=== PATIENT | female | born 1965 | race African-American/Black ===

== ENCOUNTER 2022-03-12 12:13 | Outpatient (CLI) | payer OTHER, SELFPAY ==
--- NOTE | ~2022-03-12 | CT_ITS ---
EXAMINATION: CT LE LT wo con DATE: 03/12/2022 12:48 INDICATION: Left knee osteoarthritis for preoperative planning. TECHNIQUE: High resolution computed tomography (CT) of the left lower limb from the hip through the a nkle was performed without intravenous contrast. Additional sagittal and coronal reconstructions were performed. Automated exposure control and iterative reconstruction technique were employed. The dose -length product was 1855.81 mGy-cm. COMPARISON: None FINDINGS: Bone alignment is normal. No fracture. Moderate osteoarthritis at the left hip. Tricompartmental oste oarthritis at the left knee with prominent marginal ossified small 3 compartments and at least modera te joint space narrowing in the medial compartment which could be underestimated on nonweightbearing imaging. There are central subchondral osteophytes at the trochlear groove consistent with high-grade chondromalacia. Subarticular cystlike changes at the medial aspect of the medial tibial plateau and anterior weightbearing medial femoral condyle consistent with additional high-grade chondromalacia. M ild osteoarthritis at the left ankle and multiple joints in the mid and hindfoot. Small likely reacti ve left knee joint effusion. No left hip or ankle joint effusion.. Prominent distal Achilles tendinos is with marked thickening and small enthesopathic ossicles in the distal tendon and large plantar forest caneal spur. Additional moderate-sized plantar calcaneal spurs. Fusiform thickening of the peroneus l ongus and brevis tendons at the level of the tip of the lateral malleolus consistent with tendinopath y. Multiple small heterotopic ossicles at the deep deltoid ligament likely sequela of chronic sprain. Soft tissues are otherwise unremarkable. No left pelvic or inguinal lymphadenopathy. IMPRESSION: 1. Polyarticular osteoarthritis throughout the left lower limb including tricompartmental osteoarthri tis at the left knee as detailed above. 2. Prominent distal Achilles tendinosis. 3. Tendinopathy at the left peroneus longus and brevis tendons. Reviewed, dictated and finalized at location A. IMPRESSION: 1. Polyarticular osteoarthritis throughout the left lower limb including tricom partmental osteoarthritis at the left knee as detailed above. 2. Prominent distal Achilles tendinosis. 3. Tendinopathy at the left peroneus longus and brevis tendons.
== END 2022-03-12 12:14 | disposition home or self-care (01) ==
PROVIDERS: Visit Provider Orthopaedic Surgery
DX: M17.12 Unilateral primary osteoarthritis, left knee (principal)
CPT/HCPCS: 73700

== ENCOUNTER 2022-03-17 08:31 | Outpatient (CLI) | payer OTHER, SELFPAY ==
--- NOTE | 2022-03-17 | ECG_ITS ---
Measurements Intervals [place] Rate: 88 P: 65 MD: 137 QRS: -1 QRSD: 106 T: 34 QT: 360 QTc: 437 Interpretive Statements SINUS RHYTHM WITH SHORT MD INTERVAL POSSIBLE LEFT ATRIAL ENLARGEMENT [-0.1mV P WAVE IN V1/V2] NONSPECIFIC T-WAVE ABNORMALITY NO PREVIOUS ECG AVAILABLE FOR COMPARISON Electronically Signed On 03-17-2022 19:57:11 CDT by Mely Nielson M.D.
[2022-03-17 10:00] LABS: Hematocrit 43.4 % (37.0-47.0); Hemoglobin 13.3 g/dL (12.0-15.0)
[2022-03-17 10:13] LABS: Urine Cotinine NEGATIVE
[2022-03-17 10:16] LABS: Hemoglobin A1C 5.7 % (<5.7)
[2022-03-17 10:22] LABS: Albumin Level 4.8 g/dL (3.5-5.1); Estimated Glomerular Filt Rate > 60; Glucose 106 mg/dL (65-110)
== END 2022-03-17 08:32 | disposition home or self-care (01) ==
PROVIDERS: Visit Provider Orthopaedic Surgery
DX: M17.12 Unilateral primary osteoarthritis, left knee (principal); I10 Essential (primary) hypertension; Z01.818 Encounter for other preprocedural examination
CPT/HCPCS: 80307; 82040; 82565; 82947; 83036; 85014; 85018; 93005

== ENCOUNTER 2022-04-15 13:48 | Outpatient (CLI) | payer OTHER, SELFPAY ==
[2022-04-15 15:25] LABS: Basophils Absolute Auto 0.1 K/mm3 (0.0-0.1); Basophils Percent Auto 0.8 % (0.2-1.2); Eosinophils Absolute Auto 0.3 K/mm3 (0-0.3); Hematocrit 41.1 % (37.0-47.0); Hemoglobin 12.7 g/dL (12.0-15.0); Immature Granulocyte Absolute 0.05 K/mm3 (0.00-0.031); Immature Granulocyte Percent A 0.4 % (0-0.5); Lymphocytes Absolute Auto 2.94 K/mm3 (0.9-3.2); Lymphocytes Percent Auto 23.3 % (18.3-44.2); Mean Corpuscular HGB Conc 30.9 g/dl (32-36); Mean Corpuscular Hemoglobin 25.8 pg (26-34); Mean Corpuscular Volume 83.5 fl (80-100); Mean Platelet Volume 11.4 fl (7.4-10.4); Monocytes Absolute Auto 0.9 K/mm3 (0.1-0.6); Neutrophils Absolute Auto 8.4 K/mm3 (1.3-6.7); Neutrophils Percent Auto 66.5 % (45.5-73.1); Platelet Count Result 272 k/mm3 (150-375); Red Blood Count 4.92 M/mm3 (4.2-5.4); Red Cell Distribution Width 13.4 % (11.5-14.5); White Blood Count 12.6 K/mm3 (4.5-10.0)
[2022-04-15 15:35] LABS: Anion Gap 11 mmol/L (8-16); Blood Urea Nitrogen 17 mg/dL (7-17); Calcium 9.2 mg/dL (8.4-10.2); Carbon Dioxide 33 mmol/L (22-30); Chloride 96 mmol/L (98-107); Estimated Glomerular Filt Rate > 60; Glucose 98 mg/dL (65-110); Potassium 3.7 mmol/L (3.4-5.0); Sodium 140 mmol/L (137-145)
== END 2022-04-15 13:49 | disposition home or self-care (01) ==
LOC: ANHSURGERY 13:57
PROVIDERS: Anesthesiology; Visit Provider Orthopaedic Surgery
DX: M25.562 Pain in left knee (principal); Z79.899 Other long term (current) drug therapy; Z01.818 Encounter for other preprocedural examination
CPT/HCPCS: 36415; 80048; 85025; 87081

== ENCOUNTER 2022-05-14 14:16 | Observation (INO) | payer OTHER, SELFPAY ==
--- NOTE | 2022-04-15 13:49 | PC.NURSE ---
PRE-OP INSTRUCTIONS, PLEASE READ CAREFULLY FAX COVID VACCINATIONS TO [phone] Report to the Outpatient Waiting Room, entrance under the green pavilion located off [facility], at time _0600_ on date _05/13/22_. OR Time: _0730_. PACK A SMALL OVERNIGHT BAG AND LEAVE IN THE CAR ALONG WITH YOUR WALKER Time changes happen often and if your time is changed the preop area will call you the afternoon before. - You and your visitor will be asked to self-screen and do not enter if you have any COVID symptoms. - A mask is required within the hospital. - Only one visitor and NO children visitors are allowed at this time. - The patient visitor is requested to leave or wait in car when not with patient due to restrictions. - VISITING HOURS 10AM-8PM, PARK IN FRONT PARKING LOT AND USE HOSPITAL ENTRANCE 1 Patients may have clear liquids (water, carbonated beverages, clear teas, apple juice) until 3 hours prior to surgery (0430 AM) with a maximum of 20 ounces. - No food from midnight until time of surgery Take the following medications with a SIP of water the morning of surgery: _INHALER_ Medications to discontinue per DR. BENZ - _MELOXICAM 7 DAYS PRIOR TO SURGERY, Date to take last dose 05/05/22_ Please no make-up, nail upper sorbian, hairspray, perfume, deodorant, or body powder the day of surgery. No jewelry (including any body piercings) or valuables the day of surgery, leave them at home. Please take a shower or bath the night before, or the morning of, surgery with an antibacterial soap. Wear comfortable, loose fitting clothing. - Jewelry must be removed prior to entering the operating room. Rings and piercings that are not removed may be cut off. - The hospital will not accept responsibility for valuables. - Please leave all valuables, including medications, at home the day of surgery. If you are going home after surgery, a licensed grain combine driver must drive you home. - NO public transportation without another adult. - We recommend that an adult stay with you for 24 hours following discharge. - We also recommend that you do not drive, make important decision, drink alcoholic beverages, or take any drugs that were not prescribed by your health care provider for at least 24 hours after your discharge time. Follow any additional instructions given to you from your surgeon. TOTAL JOINT CLASS 04/21/22 @ [address] [place] [address], PARK IN FROM PARKING LOT AND USE HOSPITAL ENTRANCE 2 If you or anyone in your household have experienced Covid symptoms in the past week, please notify your surgeon or the nurse liaison at the phone number below for possible testing. Instructions given to ____PT and asked if any additional questions and then verbalized understanding. Patient advised to call surgeon office or pre surgery nurse liaison [phone] if any additional questions.
[2022-04-15 14:22] VITALS: BP 126/84; PULSE 90; RESP 18; TEMP 36.7; O2SAT 99; BMI 28.8
[2022-05-13] VITALS (17 sets, daily range): BP systolic 132–158; BP diastolic 76–102; PULSE 81–105; RESP 12–21; TEMP 36–36.6; O2SAT 96–100
[2022-05-13] MEDS: ACETAMINOPHEN 500 MG TABLET 1000 MG PO (06:39)
--- NOTE | 2022-05-13 06:52 | WPDHPUPDATE1 ---
History and Physical Update Update Date/Time: 05/13/22 06:52 History and Physical has been reviewed, including an updated exam of the patient. There are NO changes in the patient's condition. Risks, benefits, and alternatives have been discussed and questions answered. Patient agrees to proceed with procedure.
[2022-05-13] MEDS: LACTATED RINGERS 1,000 ML 30 ML IV CONT ×2 (06:58→10:40)
[2022-05-13] MEDS: TRANEXAMIC ACID 1,000MG/ISO100 1,000 MG/100 ML BAG 200 MG IVPB (06:59)
[2022-05-13 07:03] LABS: White Blood Count 13.7 K/mm3 (4.5-10.0)
--- NOTE | 2022-05-13 07:16 | WPDANESEPPF ---
Anes - Initial Pre Proc Eval Procedure: Operation Date: 05/13/22 07:30 Proposed Procedures p Left Custom Total Knee Arthroplasty - Santino Packer MD Date/Time: 05/13/22 07:16 Surgeon: Santino Packer MD Pre Op Diagnosis: primary OA left knee Patient Data Age: 57 Gender: F Height: 1.85 m Weight: 98.8 kg Last Vital Signs Temp 36.0 C L 05/13/22 06:27 Pulse 83 05/13/22 06:27 Resp 16 05/13/22 06:27 BP 141/83 H 05/13/22 06:27 Pulse Ox 99 05/13/22 06:27 O2 Del Method Room Air 05/13/22 06:27 Allergies Allergy/AdvReac Type Severity Reaction Status Date / Time propoxyphene Allergy Unknown Dizziness Verified 05/13/22 06:20 [From [facility] 100] Home Medications Medication Instructions Recorded Confirmed Type albuterol sulfate 2 mg tablet 7.5 mg PO Q8H PRN Wheezing 03/05/22 05/13/22 History meloxicam 7.5 mg tablet 7.5 mg PO DAILY 03/05/22 05/13/22 History mometasone-formoterol HFA 50 mcg-5 2 puff inhalation Q12H 03/05/22 05/13/22 History mcg/actuation aerosol inhaler (Dulera) montelukast 4 mg oral granules in 7.5 mg PO HS 03/05/22 05/13/22 History packet (Singulair) Magnesium Powder 1 pkg DAILY PRN MUSCLE CRAMPS 04/15/22 05/13/22 History hydrochlorothiazide 12.5 mg tablet 12.5 mg QAM 04/15/22 05/13/22 History potassium 99 mg tablet 99 mg DAILY PRN MUSCLE CRAMPS 04/15/22 05/13/22 History Laboratory Tests 05/13/22 06:56 WBC 13.7 K/mm3 H K/mm3 (4.5-10.0) Patient hx anesthesia problems: none Family hx anesthesia problems: none Results Review: All pre-operative results and documents have been reviewed as part of the pre-operative evaluation. [facility] Past Medical History Medical History Asthma Hypertension Inflammatory bowel disease Osteoporosis Surgical History Surgical History History of ankle surgery (~2015) bone spur release History of dental surgery dental implants in 2015, 2009, 2021 History of hand surgery (~2015) Trigger finger release (Thumb) History of hysterectomy (~2004) History of meniscectomy of left knee (~2008) History of myomectomy (~1991) Family History Family History Other Diabetes mellitus Family history of arthritis Family history of malignant neoplasm of brain Family history of malignant neoplasm of male breast Heart disease Hypertension Social History Social History Smoking status: Never smoker Second hand tobacco smoke exposure: No Alcohol intake: current Alcohol use details: RARELY STATES MAYBE 3-4 DRINKS/YEAR Substance use: never Substance use type: does not use Living arrangements: with friend(s) Additional living arrangements comments: PT LIVES WITH SIGNIFICANT OTHER Spiritual care concerns: No Anes - Eval Final PreProcedure Day of Procedure 05/13/22 07:16 Patient weight: overweight Heart: regular rate and rhythm Lungs: clear to auscultation Airway: Mallampati scale class II Neurological: alert and oriented Last oral intake: >/= 8 hours ASA classification: III Emergent: no Anesthetic plan: proceed Anesthesia type and monitoring: general LMA and standard monitoring Results Review: All pre-operative results and documents have been reviewed as part of the pre-operative evaluation. Informed Consent: The patient's anesthetic plan and its attendant risks and benefits were discussed with the patient/family/POA. Questions were solicited and answers provided to the satisfaction of the patient/family/POA.
--- NOTE | 2022-05-13 07:17 | WPDANESPNB ---
Anes - Peripheral Nerve Block Date/Time: 05/13/22 07:17 I have discussed with the patient/family/POA the placement of a peripheral nerve block for post-operative pain management, including associated risks, benefits, complications, and side effects. Alternative methods of post-operative analgesia were detailed. Questions were solicited and answers provided to the satisfaction of the patient/family/POA. Time-Out: A pre-procedural Time-Out was completed immediately before starting the procedure and confirmed: Patient Identification, Site, Procedure, Patient Position and the Availability of Requisite Equipment. Clinical Indications: Acute post-operative pain management requested by the operative surgeon. Nerve Block Insertion Note Anes-nerve block: adductor canal Patient position: supine Skin prep: chlorhexidine Needle: 22 gauge, stimulating, insulated echogenic needle. Needle length: 80 mm Technique: ultrasound Injectate: bupivacaine 0.5% with epi 5 mcg/ml (no epi, 30cc) Observations: tolerated well Complications: none
[2022-05-13] MEDS: ceFAZolin 2 GM/D5W 50 ML 2 GM/50 ML BAG IVPB ×3 (07:28→23:56)
[2022-05-13] MEDS: GENTAMICIN BONE CEMENT REFOBACIN 1 EACH TOPICAL (09:37)
--- NOTE | 2022-05-13 11:07 | SUR.PHASEI ---
1055 PORTABLE XRAY DONE OF LEFT KNEE.
[2022-05-13] MEDS: fentaNYL CITRATE INJ (*CRX) 100 MCG/2 ML VIAL 25 MCG IV PUSH ×2 (11:36→11:53)
--- NOTE | 2022-05-13 13:16 | PC.NURSE ---
This patient, Karyn Valencia, was admitted to [address] [place] [address] Room [facility]. Patient/family oriented to hospital policies and general routines including ID bracelet, bed and alarms, visiting hours, pain management, procedures, bathroom and other care routines, personal items, smoking policy, room service/diet, and visiting hours. Information on how to activate the Rapid Response Team has been discussed. Patient/Family are encouraged to report perceived risks to care and to ask questions if they do not understand what they are told or what they should do. This patient, Karyn Valencia, was admitted to [address] [place] [address] Room [facility]. Patient/family oriented to hospital policies and general routines including ID bracelet, bed and alarms, visiting hours, pain management, procedures, bathroom and other care routines, personal items, smoking policy, room service/diet, and visiting hours. Information on how to activate the Rapid Response Team has been discussed. Patient/Family are encouraged to report perceived risks to care and to ask questions if they do not understand what they are told or what they should do.
[2022-05-13] MEDS: SODIUM CHLORIDE 0.9% IV 1,000 ML 125 ML IV CONT (13:55)
[2022-05-13] MEDS: ONDANSETRON INJ 4 MG/2 ML VIAL IV PUSH (14:51)
[2022-05-13] MEDS: oxyCODONE HCL (*CRX) 5 MG TAB IR 10 MG PO (14:59)
--- NOTE | 2022-05-13 15:29 | W.PM.PROC2 ---
Procedure Note - Detailed Date of Procedure 05/13/22 Pre-op Diagnosis primary OA left knee Post-op Diagnosis Same Procedure Performed Total knee arthroplasty, left. Surgeon Santino Packer MD Manufacturing Engineering Director Sarah Uriostegui PA-C Anesthesia General and Regional (Subsartorial block.) Findings Pre op contracture 10-90. Good bone quality. No releases required. Description of Procedure Preoperative antibiotics were given. The limb was prepped and draped in the usual sterile fashion with a well-padded tourniquet high on the thigh. The limb was exsanguinated and the tourniquet inflated to 300 mmHg. A longitudinal incision was created just medial to the patella. A trivector approach to the knee was performed. Arthrotomy was taken down through the joint capsule. No significant releases were initially taken. The femur was exposed and the F1 jig was applied. The coring tool was used to remove the cartilage for the F2 jig to sit flush with the bone. The jig was pinned and the distal cut carefully taken. Caliper measurements confirmed appropriate bony resections according to the preoperative templated plan. The F4 cutting jig for the femur was applied, at the standard rotation. The AP and anterior chamfer cuts were taken. The F5 jig was applied and the posterior chamfer cuts were taken. The tibia was prepared using the T1 jig, after removing cartilage for the jig contact points. Proper alignment was checked with the alignment dick. The tibia was cut using the T1u guide. Gap balancing was performed. Gap measurements were taken and the knee was trialed. Excellent alignment and soft tissue balancing was confirmed. The posterior cruciate ligament was recessed along the proximal tibia. The patella was cut for resurfacing. Three lug holes were drilled. Meniscal remnants were removed. The trial components were assembled. Excellent range of motion and proper soft tissue balancing were confirmed throughout the full range of motion. Patellar tracking was excellent. The knee was copiously irrigated periodically throughout the procedure. The real implants were cemented into position. Excess cement was carefully removed. The wound was closed in layers with interrupted #1 Vicryl suture, 2-0 strata fix suture, 0 strata fix suture, 2-0 strata fix suture. Steri-Strips placed on the skin with the knee flexed. Sterile bulky dressing applied. The patient was brought to the recovery room in stable condition. There were no complications. Physician medical technician assistant, Sarah Uriostegui PA-C, required for surgery; including patient positioning, draping, tissue retraction, maintaining instrument position, cement removal, wound closure, and dressing placement. Implants Conformis Custom total knee arthroplasty. Cemented. Cruciate retaining. 8C insert. 32 mm round patella. Estimated Blood Loss 200 Urine Output 300 Drains No Complications No immediate complications Condition Stable Disposition PACU [facility] Billing Surgery - Charge Forward: Surgery Billing
[2022-05-13] MEDS: SENNA/DOCUSATE SODIUM TABLET 2 TAB PO (16:13)
[2022-05-13] MEDS: ASPIRIN 81 MG ENTERIC TABLET PO (16:13)
[2022-05-13] MEDS: FLUTICASONE/SALMETEROL 45-21 MCG INHALER 1 PUFF 2 PUFF INHALATION (20:27)
[2022-05-13] MEDS: FAMOTIDINE 20 MG TABLET PO (21:00)
[2022-05-14] VITALS (7 sets, daily range): BP systolic 115–140; BP diastolic 60–98; PULSE 89–119; RESP 16; TEMP 36.4–36.9; O2SAT 98–100
--- NOTE | ~2022-05-14 | XR_ITS ---
EXAMINATION: XR knee LT 2V DATE: 05/13/2022 10:55 CDT INDICATION: Left total knee arthroplasty TECHNIQUE: 2 views left knee FINDINGS: There is a left total knee arthroplasty in expected position. Subcutaneous gas with fluid and air in the joint are consistent with recent surgery. No evidence of periprosthetic fracture. IMPRESSION: 1. Recent left total knee arthroplasty. Reviewed, dictated and finalized at location B.
[2022-05-14] MEDS: oxyCODONE HCL (*CRX) 5 MG TAB IR PO ×3 (03:41→09:58)
[2022-05-14 05:34] LABS: Basophils Absolute Auto 0.1 K/mm3 (0.0-0.1); Basophils Percent Auto 0.3 % (0.2-1.2); Eosinophils Percent Auto 0.1 % (0-4.4); Hematocrit 30.8 % (37.0-47.0); Hemoglobin 9.4 g/dL (12.0-15.0); Immature Granulocyte Percent A 0.6 % (0-0.5); Lymphocytes Absolute Auto 1.73 K/mm3 (0.9-3.2); Lymphocytes Percent Auto 10.1 % (18.3-44.2); Mean Corpuscular HGB Conc 30.5 g/dl (32-36); Mean Corpuscular Hemoglobin 24.9 pg (26-34); Mean Corpuscular Volume 81.5 fl (80-100); Mean Platelet Volume 10.6 fl (7.4-10.4); Monocytes Absolute Auto 1.5 K/mm3 (0.1-0.6); Monocytes Percent Auto 8.9 % (2.6-8.5); Neutrophils Absolute Auto 13.8 K/mm3 (1.3-6.7); Platelet Count Result 240 k/mm3 (150-375); Red Blood Count 3.78 M/mm3 (4.2-5.4); Red Cell Distribution Width 13.9 % (11.5-14.5); White Blood Count 17.2 K/mm3 (4.5-10.0)
[2022-05-14 05:49] LABS: Anion Gap 7 mmol/L (8-16); Blood Urea Nitrogen 9 mg/dL (7-17); Calcium 7.9 mg/dL (8.4-10.2); Carbon Dioxide 29 mmol/L (22-30); Chloride 100 mmol/L (98-107); Estimated CRCL calculation 103 ml/min; Estimated Glomerular Filt Rate > 60; Glucose 109 mg/dL (65-110); Potassium 3.7 mmol/L (3.4-5.0); Sodium 136 mmol/L (137-145)
--- NOTE | 2022-05-14 07:47 | P.PNAN_ITS ---
Anes - Prog Note Post-Op Date/Time: 05/14/22 07:47 Vital Signs: Last Vital Signs Temp 36.4 C 05/14/22 06:45 Pulse 100 05/14/22 06:45 Resp 16 05/14/22 06:45 BP 128/74 05/14/22 06:45 Pulse Ox 98 05/14/22 06:45 O2 Del Method Room Air 05/13/22 13:35 O2 Flow Rate 8 05/13/22 11:55 Pain Score (VAS): 3 I/O: Intake & Output 05/13/22 05/13/22 05/14/22 15:59 23:59 07:59 Intake Total 2150 240 1500 Output Total 600 Balance 7040 126 6087 Laboratory Tests 05/14/22 05:13 05/14/22 05:13 05/13/22 05/14/22 05/14/22 06:56 05:13 05:13 WBC 17.2 H RBC 3.78 L Hgb 9.4 L D Hct 30.8 L MCV 81.5 MCH 24.9 L MCHC 30.5 L RDW 13.9 Plt Count 240 MPV 10.6 H Immature Gran % (Auto) 0.6 H Neut % (Auto) 80.0 H Lymph % (Auto) 10.1 L [place] % (Auto) 8.9 H Eos % (Auto) 0.1 Baso % (Auto) 0.3 Lymph # (Auto) 1.73 [place] # (Auto) 1.5 H Eos # (Auto) 0.0 Baso # (Auto) 0.1 Abs Immat Gran (auto) 0.10 H Absolute Neuts (auto) 13.8 H Absolute Nucleated RBC 0.0 Nucleated RBC % 0.0 Sodium 136 L Potassium 3.7 Chloride 100 Carbon Dioxide 29 Anion Gap 7 L BUN 9 D Creatinine 0.70 Estim Creat Clear Calc 103 Estimated GFR > 60 Glucose 109 Calcium 7.9 L Blood Type O Negative Antibody Screen Negative Patient Feedback: Patient satisfied with anesthetic care.
[2022-05-14] MEDS: FLUTICASONE/SALMETEROL 45-21 MCG INHALER 1 PUFF 2 PUFF INHALATION ×2 (09:51→20:10)
[2022-05-14] MEDS: polyethylene glycoL 3350 17 GM POWD.PACK PO (10:00)
[2022-05-14] MEDS: ASPIRIN 81 MG ENTERIC TABLET PO ×2 (10:00→16:44)
[2022-05-14] MEDS: SENNA/DOCUSATE SODIUM TABLET 2 TAB PO ×2 (10:00→16:44)
[2022-05-14] MEDS: predniSONE 5 MG TABLET PO (10:00)
[2022-05-14] MEDS: MELOXICAM 7.5 MG TABLET PO (10:01)
[2022-05-14] MEDS: FAMOTIDINE 20 MG TABLET PO ×2 (10:01→21:07)
[2022-05-14] MEDS: hydroCHLOROthiazide 12.5 MG CAPSULE PO (10:01)
[2022-05-14] MEDS: ceFAZolin 2 GM/D5W 50 ML 2 GM/50 ML BAG IVPB (10:02)
[2022-05-14] MEDS: CYCLOBENZAPRINE HCL 10 MG TABLET PO ×2 (11:43→21:07)
--- NOTE | 2022-05-14 13:53 | PM.PNORT ---
Progress Note: A&P Assessment and Plan (1) Status post total left knee replacement: Code(s): Z96.652 - Presence of left artificial knee joint Status: Acute Plan Post op day 1: left TKA. Patient having trouble with pain control today. Also, her WBC is 17.2. She did have a slight elevated WBC prior to surgery. Patient states this is normal for her and her PCP has already worked her up for it. She has no signs of infection or symptoms of infection. Will put patient on oral antibiotics for 2 weeks after surgery. Will keep patient overnight for pain control. Plan for discharge in the AM. Subjective Subjective Date/Time Seen: 05/14/22 13:53 Interval history: Patient struggling with pain control today. No CP, SOB, cough, fever, urinary issues, ABD pain. Her white count elevated today. Patient states he has a history of slightly elevate white count in the past. Review of Systems Constitutional: Constitutional: Denies difficulty sleeping, Denies fatigue, Denies fever(s), Denies headache(s) and Denies night sweats Eyes: Eyes: Denies loss of vision ENT: Denies dizziness, Denies headache(s) and Denies hearing loss Cardiovascular: Cardiovascular: Denies irregular heart rhythm and Denies dyspnea Respiratory: Respiratory: Denies cough and Denies dyspnea Gastrointestinal: Gastrointestinal: Denies change in bowel habits, Denies diarrhea, Denies nausea and Denies vomiting Genitourinary: Genitourinary: Denies nocturia, Denies dysuria and Denies urinary incontinence Musculoskeletal: Musculoskeletal: Denies abnormal gait Neurologic: Denies abnormal gait, Denies dizziness, Denies headache(s) and Denies loss of vision Psychiatric: Psychiatric: Denies anxiety and Denies depression Endocrine: Endocrine: Denies cold intolerance, Denies fatigue and Denies heat intolerance Exam Narrative: 57-year-old overweight female. Resting in bed. Uncomfortable. Alert and oriented x3. No acute distress. Wearing compression socks bilaterally. Dressing intact with no drainage. Moderate swelling. Slight ecchymosis. No erythema. No hematoma. No warmth. Range of motion limited due to pain. Calf nontender. Neurologic status intact. No varicosities. Distal pulses palpable. Light touch sensation intact. Good capillary refill. Objective Data Vital Signs Vital Signs: Vital Signs - 24 hr 05/13/22 14:00 05/13/22 15:00 05/13/22 18:45 Temperature 97.6 F 97.6 F 97.6 F Pulse Rate 87 98 96 Respiratory Rate 16 16 16 Blood Pressure 134/84 137/81 132/80 Pulse Oximetry 100 100 100 Oxygen Delivery 05/13/22 21:48 05/14/22 02:25 05/14/22 06:45 Temperature 97.6 F 97.8 F 97.6 F Pulse Rate 90 89 100 Respiratory Rate 16 16 16 Blood Pressure 133/76 128/60 128/74 Pulse Oximetry 100 98 98 Oxygen Delivery 05/14/22 09:55 Temperature Pulse Rate Respiratory Rate Blood Pressure Pulse Oximetry 99 Oxygen Delivery Room Air Intake/Output Intake/Output: Intake & Output 05/11/22 05/12/22 05/13/22 05/14/22 23:59 23:59 23:59 23:59 Intake Total 2490 1500 Output Total 600 Balance 1890 1500 Meds/Results Medications: Active Medications Generic Name Dose Route Start Last Admin Trade Name Freq PRN Reason Stop Dose Admin Acetaminophen 1,000 mg 05/14/22 06:00 Acetaminophen 500 Mg Tablet PO Q6H PRN Pain Rated 1-3 Aspirin 81 mg 05/13/22 17:00 05/14/22 10:00 Aspirin 81 Mg Enteric Tablet PO 81 mg BID CITLALLI Administration Cyclobenzaprine HCl 10 mg 05/13/22 13:00 05/14/22 11:43 Cyclobenzaprine Hcl 10 Mg Tablet PO 10 mg Q8H PRN Administration Spasms Diphenhydramine HCl 25 mg 05/13/22 13:00 Diphenhydramine Hcl Inj 50 Mg/Ml Vial IV PUSH Q6H PRN Itching Famotidine 20 mg 05/13/22 21:00 05/14/22 10:01 Famotidine 20 Mg Tablet PO 20 mg Q12HR CITLALLI Administration Hydrochlorothiazide 12.5 mg 05/14/22 09:00 05/14/22 10:01 Hydrochlorothiazide 12.5 Mg Capsule
[2022-05-14] MEDS: oxyCODONE HCL (*CRX) 5 MG TAB IR 10 MG PO ×2 (16:44→22:53)
[2022-05-14] MEDS: CEPHALEXIN 500 MG CAPSULE PO (21:07)
[2022-05-15] MEDS: oxyCODONE HCL (*CRX) 5 MG TAB IR PO (04:18)
[2022-05-15 06:15] VITALS: BP 136/77; PULSE 100; RESP 16; TEMP 36.4; O2SAT 100
[2022-05-15 06:19] LABS: Basophils Absolute Auto 0.1 K/mm3 (0.0-0.1); Basophils Percent Auto 0.4 % (0.2-1.2); Eosinophils Absolute Auto 0.1 K/mm3 (0-0.3); Eosinophils Percent Auto 0.4 % (0-4.4); Hematocrit 30.5 % (37.0-47.0); Hemoglobin 9.6 g/dL (12.0-15.0); Immature Granulocyte Absolute 0.07 K/mm3 (0.00-0.031); Immature Granulocyte Percent A 0.4 % (0-0.5); Lymphocytes Absolute Auto 1.73 K/mm3 (0.9-3.2); Mean Corpuscular HGB Conc 31.5 g/dl (32-36); Mean Corpuscular Hemoglobin 25.3 pg (26-34); Mean Corpuscular Volume 80.5 fl (80-100); Mean Platelet Volume 10.7 fl (7.4-10.4); Monocytes Absolute Auto 1.8 K/mm3 (0.1-0.6); Monocytes Percent Auto 11.5 % (2.6-8.5); Neutrophils Percent Auto 76.3 % (45.5-73.1); Platelet Count Result 242 k/mm3 (150-375); Red Blood Count 3.79 M/mm3 (4.2-5.4); Red Cell Distribution Width 14.1 % (11.5-14.5); White Blood Count 15.8 K/mm3 (4.5-10.0)
[2022-05-15 06:40] LABS: Anion Gap 9 mmol/L (8-16); Blood Urea Nitrogen 7 mg/dL (7-17); Calcium 8.3 mg/dL (8.4-10.2); Carbon Dioxide 29 mmol/L (22-30); Chloride 97 mmol/L (98-107); Estimated CRCL calculation 103 ml/min; Estimated Glomerular Filt Rate > 60; Glucose 120 mg/dL (65-110); Potassium 3.5 mmol/L (3.4-5.0); Sodium 135 mmol/L (137-145)
[2022-05-15] MEDS: FLUTICASONE/SALMETEROL 45-21 MCG INHALER 1 PUFF 2 PUFF INHALATION (07:27)
[2022-05-15 08:22] VITALS: BP 145/79; PULSE 108; RESP 20; O2SAT 100
[2022-05-15] MEDS: hydroCHLOROthiazide 12.5 MG CAPSULE PO (08:24)
[2022-05-15] MEDS: predniSONE 5 MG TABLET PO (08:24)
[2022-05-15] MEDS: SENNA/DOCUSATE SODIUM TABLET 2 TAB PO (08:24)
[2022-05-15] MEDS: ASPIRIN 81 MG ENTERIC TABLET PO (08:24)
[2022-05-15] MEDS: FAMOTIDINE 20 MG TABLET PO (08:24)
[2022-05-15] MEDS: CEPHALEXIN 500 MG CAPSULE PO (08:24)
[2022-05-15] MEDS: MELOXICAM 7.5 MG TABLET PO (08:25)
[2022-05-15] MEDS: polyethylene glycoL 3350 17 GM POWD.PACK PO (08:25)
[2022-05-15] MEDS: oxyCODONE HCL (*CRX) 5 MG TAB IR 10 MG PO ×2 (08:25→12:31)
--- NOTE | 2022-05-15 09:36 | PM.DS ---
DS: Admitting Diagnosis Discharge Date 05/15/22 Admitting Diagnosis OA knee Left DS: Discharge Diagnosis Discharge Diagnosis (1) Status post total left knee replacement: Code(s): Z96.652 - Presence of left artificial knee joint Status: Acute Assessment and Plan: Postop day 1: Left total Knee arthroplasty. Patient tolerated procedure well. She did have pain management issues yesterday,. Pain manageable with pain medication today. She did have an elevated white count post op. That is trending down today. Sending her home with oral antibiotics. No numbness or tingling. We had a lengthy discussion regarding postoperative wound care, limitations, expectations, and exercises. Patient shows good understanding. She has had initial physical therapy and is tolerating it well. DVT prophylaxis: 81 mg baby aspirin b.i.d. for 14 days. Pain medication: Percocet. Meloxicam. Prednisone. Keflex three times a day for 2 weeks total. Patient has followup appointment with Dr. Packer in 3 weeks. DS: Summary Hospital Course Reason for hospitalization: Total knee arthroplasty Hospital Course: Patient tolerated procedure well. Has had initial PT/OT. Status at Discharge Functional status at discharge: uses cane/walker Overall status at discharge: patient is progressing back to baseline Time Spent with Patient Time attestation: Total time spent providing and/or coordinating discharge services: Exam Narrative: 57-year-old overweight female. Resting comfortably in bed. Alert and oriented x3. No acute distress. Wearing compression socks bilaterally. Dressing intact with without drainage. Moderate swelling. Moderate ecchymosis. No erythema. No hematoma. Range of motion limited due to pain. Calf nontender. Neurologic status intact. No varicosities. Distal pulses palpable. DS: Data Data Completed and Pending Labs on day of discharge: Labs from last 24 hours 05/15/22 05/15/22 05:27 05:27 WBC 15.8 H RBC 3.79 L Hgb 9.6 L Hct 30.5 L MCV 80.5 MCH 25.3 L MCHC 31.5 L RDW 14.1 Plt Count 242 MPV 10.7 H Immature Gran % (Auto) 0.4 Neut % (Auto) 76.3 H Lymph % (Auto) 11.0 L White % (Auto) 11.5 H Eos % (Auto) 0.4 Baso % (Auto) 0.4 Lymph # (Auto) 1.73 White # (Auto) 1.8 H Eos # (Auto) 0.1 Baso # (Auto) 0.1 Abs Immat Gran (auto) 0.07 H Absolute Neuts (auto) 12.0 H Absolute Nucleated RBC 0.0 Nucleated RBC % 0.0 Sodium 135 L Potassium 3.5 Chloride 97 L Carbon Dioxide 29 Anion Gap 9 BUN 7 Creatinine 0.70 Estim Creat Clear Calc 103 Estimated GFR > 60 Glucose 120 H Calcium 8.3 L Discharge Plan Discharge Attending physician on discharge: Santino Packer Discharging Clinician: Sarah Uriostegui Patient Disposition: Home, Self-Care Activity: may shower and other - see discharge instructions Diet: regular Wound Care Instructions: follow printed instructions Discharge Instructions: See green instruction sheets Patient Instructions: Pain Management (DC) Stand Alone Forms: General Discharge Instructions Follow-up/Referrals: Sarah Uriostegui, PA [Physician Semi Conductor Assembler] - Discharge Medications: New oxycodone-acetaminophen 5-325 mg tablet 1 - 2 tablet PO Q4-6H MDD 6 PRN (Reason: pain) Qty: 30 0RF aspirin 81 mg tablet,delayed release (DR/EC) 81 mg PO BID 14 Days Qty: 28 0RF meloxicam 15 mg tablet 15 mg PO DAILY Qty: 30 0RF Rx Instructions: Cut in half. Take 1/2 in morning and 1/2 at night. Take with food. Stop if stomach upset. cephalexin 500 mg capsule 500 mg PO Q8H 13 Days Qty: 39 0RF Rx Instructions: Take 3 times a day for 2 days. prednisone 5 mg tablet 5 mg PO DAILY 21 Days Qty: 21 0RF Continued montelukast [Singulair] 4 mg granules in packet 7.5 mg PO HS Dulera 50-5 mcg/actuation HFA aerosol inhaler 2 puff inhalation Q12H
== END 2022-05-15 12:50 | disposition home or self-care (01) ==
LOC: ANHSURGERY 16:15 → ANH2MED 16:15
PROVIDERS: Physician Assistant Surgical; Admitting Provider Orthopaedic Surgery; Visit Provider Orthopaedic Surgery
PROC: (CPT 27447; principal; 2022-05-13 07:30)
DX: M17.12 Unilateral primary osteoarthritis, left knee (principal); G89.18 Other acute postprocedural pain; E66.3 Overweight; I10 Essential (primary) hypertension; M81.0 Age-related osteoporosis without current pathological fracture; Z68.28 Body mass index [BMI] 28.0-28.9, adult; F10.90 Alcohol use, unspecified, uncomplicated; Z79.52 Long term (current) use of systemic steroids; Z79.899 Other long term (current) drug therapy
CPT/HCPCS: 27447; 64447; 36415; 73560; 80048; 85025; 85048; 86850; 86900; 86901; 87081; 94640; 97110; 97116; 97161; 97165; 97530; 97535; A9270; C1713; C1776; G0378; J0131; J0171; J0690; J1100; J1885; J2250; J2270; J2405; J2704; J2795; J3010; J7030; J7120; J7512

== ENCOUNTER 2024-05-07 07:53 | Outpatient (CLI) | payer OTHER, SELFPAY ==
--- NOTE | ~2024-05-07 | XR_ITS ---
XR knee LT 3V 05/07/2024 08:11 Indication: Left knee arthroplasty. Procedure: 3 views left knee Comparison: Comparison to multiple prior studies sequentially, with oldest reviewed study dated 04/18. Findings: Left knee prosthesis well seated. No fracture, subluxation or joint effusion. No evidence f or loosening. There is anatomic alignment. Impression: 1: No acute bone or joint abnormality. Reviewed, dictated and finalized at location B. Impression: 1: No acute bone or joint abnormality.
== END 2024-05-07 07:54 | disposition home or self-care (01) ==
PROVIDERS: Visit Provider Orthopaedic Surgery
DX: Z96.652 Presence of left artificial knee joint (principal)
CPT/HCPCS: 73562